=== PATIENT | male | born 1995 | race Caucasian/White ===

== ENCOUNTER 2016-12-10 03:55 | Emergency (ER) | payer OTHER ==
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
[~2016-12-10 03:55] MED LIST: ADDERALL PO; KEFLEX500 MG PO; NO MEDICATIONS; TRAMADOL HCL50 M1 PO
== END 2016-12-10 05:31 | disposition home or self-care (01) ==
LOC: SED 03:55
DX: S40.012A Contusion of left shoulder, initial encounter (principal); S80.02XA Contusion of left knee, initial encounter; R56.9 Unspecified convulsions; Z90.49 Acquired absence of other specified parts of digestive tract; V43.92XA Unspecified car occupant injured in collision with other type car in traffic accident, initial encounter
CPT/HCPCS: 29530; 73030; 73560; 99284